=== PATIENT | female | born 1945 | race Caucasian/White ===

== ENCOUNTER 2017-05-15 14:35 | Emergency (ER) | payer MEDICARE, OTHER ==
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
[2017-05-15] MEDS ORDERED: Famotidine 20 MG/2 ML SDV IVPUSH ONE (14:55)
[2017-05-15] MEDS ORDERED: Labetalol 20 MG/4 ML Syringe IVPUSH ONE (14:57)
[2017-05-15] MEDS: Sodium Chloride 0.9% 10 ML Syringe FLUSH PRN ×2 (15:10→15:43)
[2017-05-15] MEDS ORDERED: hydrALAZINE 20 MG/ML SDV IVPUSH ONE (15:37)
[2017-05-15 16:06] VITALS: BP 150/75
== END 2017-05-15 16:32 | disposition home or self-care (01) ==
LOC: LL.ED 14:35
DX: I10 Essential (primary) hypertension (principal); E11.9 Type 2 diabetes mellitus without complications; K21.9 Gastro-esophageal reflux disease without esophagitis; F41.8 Other specified anxiety disorders; J43.1 Panlobular emphysema; I25.10 Atherosclerotic heart disease of native coronary artery without angina pectoris; E78.00 Pure hypercholesterolemia, unspecified; E03.9 Hypothyroidism, unspecified; Z87.891 Personal history of nicotine dependence; Z79.82 Long term (current) use of aspirin; Z79.84 Long term (current) use of oral hypoglycemic drugs; Z79.899 Other long term (current) drug therapy; Z88.1 Allergy status to other antibiotic agents; Z88.8 Allergy status to other drugs, medicaments and biological substances; Z91.013 Allergy to seafood; Z88.4 Allergy status to anesthetic agent
CPT/HCPCS: 36415; 71045; 80053; 82550; 82553; 83605; 83735; 83880; 84443; 84484; 84550; 85025; 85379; 85610; 85730; 93005; 96374; 96375; 99284; J0360; J3490; J7050; 93010; S0028

== ENCOUNTER 2019-01-29 09:50 | Day surgery (SDC) | payer MEDICARE, OTHER ==
[~2019-01-29 09:50] MED LIST: Lactated Ringers 1,000 ML IV SCH; Sodium Chloride 0.9% 10 ML Syringe FLUSH PRN
[2019-01-29] MEDS ORDERED: Midazolam 1 MG/ML 2 ML SDV ONE ×2 (11:27→11:28)
[2019-01-29] MEDS ORDERED: Propofol 200 MG/20 ML SDV ONE ×2 (11:27→11:28)
--- NOTE | 2019-01-29 11:30 | PCM.PN ---
- General Info Date of Service: 01/29/19 - Review of Systems Systems Review Comment:: 73-year-old female referred for surveillance colonoscopy. She has a history of colon polyps with her last colonoscopy being performed in May 2015. She is medically stable to proceed today. No significant variation from her recent history and physical is noted. I have discussed the proposed colonoscopy with the patient. She agrees to proceed accepting risks. - Patient Data Vitals - Most Recent: Last Vital Signs Temp 98.0 F 01/29/19 11:02 Pulse 68 01/29/19 11:02 Resp 18 01/29/19 11:02 BP 142/90 H 01/29/19 11:02 Pulse Ox 96 01/29/19 11:02 Weight - Most Recent: 63.503 kg Med Orders - Current: Current Medications Lactated Ringer's (Ringers, Lactated) 1,000 mls @ 125 mls/hr IV ASDIRECTED TAYLOR Last Admin: 01/29/19 11:00 Dose: 125 mls/hr Sodium Chloride (Saline Flush) 10 ml FLUSH ASDIRECTED PRN PRN Reason: Keep Vein Open - Problem List Review Problem List Initiated/Reviewed/Updated: Yes - Assessment Assessment:: history of colon polyps Family history of colon cancer - Plan Plan:: colonoscopy
--- NOTE | 2019-01-29 12:12 | PCM.OPNOTE ---
- General Post-Op/Procedure Note Date of Surgery/Procedure: 01/29/19 Operative Procedure(s): Colonoscopy with Polypectomy Findings: Small rectal and sigmoid colon polyps Extensive Sigmoid Diverticulosis with tortuous colon Pre Op Diagnosis: history of colon polyps Post-Op Diagnosis: Colon Polyps. Sigmoid Diverticulosis Anesthesia Technique: MAC Primary Surgeon: Walter Roper Pathology: Rectal and Sigmoid colon polyps EBL in mLs: 0 Complications: None Condition: Good
--- NOTE | 2019-01-29 14:37 | OR ---
Date of Procedure: 01/29/2019 PREOPERATIVE DIAGNOSIS: History of colon polyps. POSTOPERATIVE DIAGNOSES: 1. Colon polyps. 2. Sigmoid diverticulosis. OPERATION PERFORMED: Colonoscopy with polypectomy. INDICATIONS FOR SURGERY: A 73-year-old female has a known history of colon polyps. She comes today for surveillance colonoscopy. FINDINGS: Two polyps were noted on today's exam; one is a 4 mm sessile polyp noted in the rectum 10 cm from the anal verge; the other polyp is a 6 mm sessile polyp in the sigmoid colon 20 cm from the anal verge. The patient also has extensive sigmoid diverticulosis with tortuosity of the colon through this area. The remainder of the colon appears normal. DESCRIPTION OF PROCEDURE: The patient was taken to the operating room. She was given intravenous sedation, and with her in the left lateral decubitus position, digital rectal exam was performed. No rectal masses were noted. The Olympus colonoscope was inserted into the rectum and retroflexed examination of the rectal canal was performed. In the rectum and in the sigmoid colon, small polyps were identified. These were each removed with a cautery snare and retrieved into a polyp trap. The scope was then further carefully advanced through the entire length of the colon until the cecum was reached. Advancement of the scope through the sigmoid region was difficult because of the diverticulosis and tortuosity, but this was able to be eventually safely accomplished with careful scope manipulation. Once the cecum had been reached, the ileocecal valve was identified. After examining the cecum, the scope was slowly withdrawn sequentially re-examining the colonic segments until the entire colon and rectum had been fully examined. The scope was removed, and the patient was taken from the operating room in satisfactory condition. ESTIMATED BLOOD LOSS: 0. COMPLICATIONS: None. PROGNOSIS: Good. MAXX Roper MD /[id number]
[2019-01-29 14:42] VITALS: BP 160/78; PULSE 69
== END 2019-01-29 13:32 | disposition home or self-care (01) ==
LOC: LL.SDS 09:50
PROVIDERS: ATTEND Surgery
DX: Z12.11 Encounter for screening for malignant neoplasm of colon (principal); D12.5 Benign neoplasm of sigmoid colon; K62.1 Rectal polyp; K57.30 Diverticulosis of large intestine without perforation or abscess without bleeding; K63.89 Other specified diseases of intestine; I10 Essential (primary) hypertension; K44.9 Diaphragmatic hernia without obstruction or gangrene; K21.9 Gastro-esophageal reflux disease without esophagitis; Z88.0 Allergy status to penicillin; Z91.013 Allergy to seafood; Z88.8 Allergy status to other drugs, medicaments and biological substances; Z91.018 Allergy to other foods; Z91.048 Other nonmedicinal substance allergy status; Z87.891 Personal history of nicotine dependence; Z86.010 Personal history of colon polyps; Z80.0 Family history of malignant neoplasm of digestive organs; Z79.899 Other long term (current) drug therapy
CPT/HCPCS: 00812; J2250; J2704; J7120

== ENCOUNTER 2024-01-30 10:15 | Day surgery (SDC) | payer MEDICARE, OTHER ==
[~2024-01-30 10:15] MED LIST changes: -Lactated Ringers 1,000 ML IV SCH; +Propofol 200 MG/20 ML SDV ONE
[2024-01-30] MEDS: Lactated Ringers 1,000 ML IV SCH (10:49)
[2024-01-30 11:49] VITALS: PULSE 63
[2024-01-30 11:58] VITALS: BP 118/88
== END 2024-01-30 12:28 | disposition home or self-care (01) ==
LOC: LL.SDS 10:15
PROVIDERS: ATTEND Surgery
DX: Z12.11 Encounter for screening for malignant neoplasm of colon (principal); K57.30 Diverticulosis of large intestine without perforation or abscess without bleeding; Z86.0100 Personal history of colon polyps, unspecified; Z80.0 Family history of malignant neoplasm of digestive organs; E11.69 Type 2 diabetes mellitus with other specified complication; E78.5 Hyperlipidemia, unspecified; E11.59 Type 2 diabetes mellitus with other circulatory complications; E11.22 Type 2 diabetes mellitus with diabetic chronic kidney disease; I12.9 Hypertensive chronic kidney disease with stage 1 through stage 4 chronic kidney disease, or unspecified chronic kidney disease; N18.30 Chronic kidney disease, stage 3 unspecified; K21.00 Gastro-esophageal reflux disease with esophagitis, without bleeding; J44.9 Chronic obstructive pulmonary disease, unspecified; Z79.899 Other long term (current) drug therapy
CPT/HCPCS: 82947; G0105; J2704; J7120